=== PATIENT | male | born 1970 | race Caucasian/White ===

== ENCOUNTER 2016-09-11 06:36 | Day surgery (SDC) | payer BC ==
--- NOTE | ~2016-09-11 | EGD ---
EGD REPORT [facility] [address] [address] NAME: ARA WHITE : [birth year] STATUS : REG [facility]#: [id number] AGE: 46 ADM/REG DATE : 09/11/16 MR#: [id number] REPORT SERV DATE: 09/11/16 DICTATED BY: REMY MCGHEE DATE: 09/11/16 REPORT STATUS : Draft TRANSCRIBED BY: [facility] DATE: 09/11/16 Endoscopy Center Patient Name: Ara White Date of : 1970 Attending MD: REMY MCGHEE MD Procedure Date No Time: 09/11/2016 Procedure: Colonoscopy Indications: Personal history of ulcerative colitis Referring MD: Arturo Cardenas Medicines: as per anesthesia Complications: No immediate complications. Procedure: Pre-Anesthesia Assessment: - ASA Grade Assessment: I - A normal, healthy patient. After I obtained informed consent, the scope was passed under direct vision. Throughout the procedure, the patient's blood pressure, pulse, and oxygen saturations were monitored continuously. The PCF [id number] was introduced through the anus and advanced to the cecum, identified by appendiceal orifice and ileocecal valve. The colonoscopy was performed without difficulty. The patient tolerated the procedure. The quality of the bowel preparation was adequate to identify polyps. Findings: The perianal and digital rectal examinations were normal. Internal hemorrhoids were found during endoscopy and were mild. no active colitis Four biopsies were obtained in the rectum, in the sigmoid colon, in the descending colon, in the proximal transverse colon, in the distal transverse colon, in the ascending colon and in the cecum with cold forceps for histology. Impression: - Internal hemorrhoids. - Four biopsies were obtained in the rectum, in the sigmoid colon, in the descending colon, in the proximal transverse colon, in the distal transverse colon, in the ascending colon and in the cecum. Recommendation: - Await pathology results. Procedure Code(s): --- Professional --- 35770, Colonoscopy, flexible, proximal to splenic flexure; with biopsy, single or multiple Diagnosis Code(s): --- Professional --- EGD REPORT [address] [address] NAME: ARA WHITE : [birth year] STATUS : REG [facility]#: [id number] AGE: 46 ADM/REG DATE : 09/11/16 MR#: [id number] REPORT SERV DATE: 09/11/16 DICTATED BY: REMY MCGHEE. DATE: 09/11/16 REPORT STATUS : Draft TRANSCRIBED BY: [employer] DATE: 09/11/16 K64.8, Other hemorrhoids Z87.19, Personal history of other diseases of the digestive system CPT copyright 2013 [employer]. All rights reserved. The codes documented in this report are preliminary and upon treasury associate review may be revised to meet current compliance requirements. REMY MCGHEE MD 09/11/2016 9:19 AM This report has been signed electronically. Number of Addenda: 0 Note Initiated On: 09/11/2016 8:43 AM Scope Withdrawal Time 0 hours 14 minutes [address] [place], [place] [address] [id number]
[~2016-09-11 06:36] MED LIST: AMINO ACID; MULTI-VIT/F1 PO; MULTIVIT/MIN; [UNRECOGNIZED DRUG - OTHER]; [UNRECOGNIZED DRUG - OTHER]
== END 2016-09-11 23:59 | disposition home or self-care (01) ==
LOC: DMU 06:36
PROVIDERS: Internal Medicine Gastroenterology
PROC: 0DBH8ZX Excision of Cecum, Via Natural or Artificial Opening Endoscopic, Diagnostic (ICD-10-PCS; 2016-09-11)
PROC: 0DBK8ZX Excision of Ascending Colon, Via Natural or Artificial Opening Endoscopic, Diagnostic (ICD-10-PCS; 2016-09-11)
PROC: 0DBM8ZX Excision of Descending Colon, Via Natural or Artificial Opening Endoscopic, Diagnostic (ICD-10-PCS; 2016-09-11)
PROC: 0DBN8ZX Excision of Sigmoid Colon, Via Natural or Artificial Opening Endoscopic, Diagnostic (ICD-10-PCS; 2016-09-11)
PROC: 0DBP8ZX Excision of Rectum, Via Natural or Artificial Opening Endoscopic, Diagnostic (ICD-10-PCS; principal; 2016-09-11 08:30)
DX: K63.5 Polyp of colon (principal); K52.9 Noninfective gastroenteritis and colitis, unspecified; K64.8 Other hemorrhoids; Z87.19 Personal history of other diseases of the digestive system; Z88.0 Allergy status to penicillin; Z88.1 Allergy status to other antibiotic agents; G43.909 Migraine, unspecified, not intractable, without status migrainosus; Z87.01 Personal history of pneumonia (recurrent)
CPT/HCPCS: 88305